=== PATIENT | female | born 1980 | race Two or more races ===

== ENCOUNTER 2016-08-09 01:45 | Emergency (ER) | payer OTHER ==
[~2016-08-09] VITALS: Ht 165.1 cm; Wt 107.5 kg
--- NOTE | 2016-08-09 01:56 | NUR ---
[id number] FR HOME FOR C/O DIFFUSE ABD PAIN W/ N/V X COUPLE HRS, S/P EATING CHICKEN FR RALPHS. PT AOX4 RR EVEN AND UNLABORED. NO SOB NOTED. NAD NOTED. NO NVD AT THIS TIME. PT GOWNED AND PLACED ON MONITOR WAITING FOR MD MERRITT.
[2016-08-09] MEDS ORDERED: IV NS 0.9% 1,000 ML ONE (02:15)
[2016-08-09] MEDS ORDERED: MORPHINE SULFATE INJ 4 MG/ML DISP.SYRIN ONE (02:15)
[2016-08-09] MEDS ORDERED: ONDANSETRON HCL/PF 4 MG/2 ML VIAL ONE ×2 (02:15→02:34)
[2016-08-09] MEDS ORDERED: IV SET PRIMARY 1 EA INFUS.SET MC ONE (02:15)
[2016-08-09] MEDS: MORPHINE SULFATE INJ 2 MG/ML DISP.SYRIN IV ONE (02:24)
[2016-08-09] MEDS: IV NS 0.9% 1,000 ML BAG IV ONE (02:24)
[2016-08-09] MEDS: ONDANSETRON HCL/PF 4 MG/2 ML VIAL IVP ONE (02:24)
[2016-08-09 02:25] LABS: BASOPHILS # (AUTO) 0.2 /CMM (0.0-0.2); BASOPHILS % (AUTO) 1.2 % (0.0-2.0); EOSINOPHILS # (AUTO) 0.2 /CMM (0.0-0.7); EOSINOPHILS % (AUTO) 1.4 % (0.0-6.0); HEMATOCRIT 45 % (33-45); HEMOGLOBIN 15.1 g/dL (11.5-14.8); LYMPHOCYTES # (AUTO) 2.5 /CMM (0.8-4.8); LYMPHOCYTES % (AUTO) 16.4 % (20.0-44.0); MEAN CORPUSCULAR HEMOGLOBIN 29 PG (26.0-33.0); MEAN CORPUSCULAR HGB CONC 34 g/dl (31.0-36.0); MEAN CORPUSCULAR VOLUME 85 fL (82-100); MONOCYTES # (AUTO) 0.6 /CMM (0.1-1.30); NEUTROPHILS # (AUTO) 11.5 /CMM (1.8-8.9); PLATELET COUNT (AUTO) 292 /CMM (150-450); RDW COEFFICIENT OF VARIATION 13.6 (11.5-15.0); RED BLOOD CELL COUNT(AUTO) 5.25 MIL/uL (4.0-5.2)
[2016-08-09 02:35] LABS: CALCIUM, SERUM 9.7 mg/dL (8.5-10.1); POTASSIUM 3.7 mmol/L (3.5-5.1)
[2016-08-09 02:41] LABS: ALBUMIN 4.4 g/dL (3.4-5.0); BILIRUBIN,DIRECT 0.2 mg/dL (0.0-0.2); BILIRUBIN,TOTAL 0.7 mg/dL (0.2-1.0); TOTAL PROTEIN, SERUM 8.2 g/dL (6.4-8.2)
[2016-08-09] MEDS: ONDANSETRON HCL/PF 4 MG/2 ML VIAL IV ONE (02:42)
[2016-08-09] MEDS ORDERED: LORAZEPAM INJ 2 MG/ML VIAL ONE (03:17)
--- NOTE | 2016-08-09 03:26 | NUR ---
DR. MONTES AT BEDSIDE SPEAKING TO PT
--- NOTE | 2016-08-09 03:27 | NUR ---
GREGORY (yingienphilip) [phone]
[2016-08-09] MEDS: LORAZEPAM INJ 2 MG/ML VIAL IV ONE (03:40)
--- NOTE | 2016-08-09 03:41 | NUR ---
URINE COLLECTED. CALLED LAB FOR CIVIL CAD DESIGNER.
[2016-08-09 03:52] LABS: APPEARANCE,URINE CLEAR (CLEAR); BILIRUBIN,URINE NEGATIVE (NEGATIVE); BLOOD, URINE NEGATIVE Ery/uL (NEGATIVE); COLOR,URINE YELLOW (YELLOW); KETONES,URINE 3+ (NEGATIVE); LEUKOCYTE ESTERASE ,URINE NEGATIVE (NEGATIVE); NITRITE, URINE NEGATIVE (NEGATIVE); PH,URINE 7.5 (5.0-8.0); PROTEIN,URINE TRACE mg/dl (NEGATIVE); UGLUCOSE NEGATIVE (NEGATIVE); UROBILINOGEN,URINE 0.2 EU/dL (0.2)
[2016-08-09 03:53] LABS: PREGNANCY TEST URINE QUAL NEGATIVE (NEGATIVE)
[2016-08-09 04:11] LABS: BACTERIA,URINE None seen /HPF (None Seen); RBC,URINE NONE SEEN /HPF (0-2); SQUAMOUS EPITHELIAL CELL,UR Few /HPF (None Seen); WBC,URINE 0-2 /HPF (0-3)
--- NOTE | 2016-08-09 04:30 | NUR ---
CALLED [facility] FOR F/U PENDING RESULTS FOR CT ABD/PELVIS.
--- NOTE | 2016-08-09 05:03 | NUR ---
CALLED [facility], RESULTS FOR CT ABD/PELVIS TO BE FAXED
--- NOTE | 2016-08-09 05:05 | NUR ---
FAX OF CT ABD/PELVIS RECEIVED.
--- NOTE | 2016-08-09 05:15 | NUR ---
DR. MONTES AT BEDSIDE SPEAKING TO PT REGARDING RESULTS.
--- NOTE | 2016-08-09 05:24 | NUR ---
IV removed. Catheter intact and site benign. Pressure and 4x4 applied to site. No bleeding noted. Patient discharged to home in stable condition. Written and verbal after care instructions given. Patient verbalizes understanding of instruction. ambulatory with a steady gait
[2016-08-09 05:25] VITALS: BP 126/86
== END 2016-08-09 05:25 | disposition home or self-care (01) ==
LOC: ER 01:50
DX: N83.201 Unspecified ovarian cyst, right side (principal); F31.9 Bipolar disorder, unspecified
CPT/HCPCS: 36415; 74176; 80048; 80076; 81001; 84703; 85025; 96361; 96374; 96375; 99285; A4606; J2060; J2270; J2405 ×2; J7030; Z7610; 81000-TC

== ENCOUNTER 2016-09-03 03:35 | Emergency (ER) | payer OTHER ==
[~2016-09-03] VITALS: Ht 165.1 cm; Wt 108.9 kg
--- NOTE | 2016-09-03 05:59 | NUR ---
PT AMBULATORY TO ER BED 2, BIBSELF, C/O RUQ ABD PAIN SINCE 1AM. +NAUSEA. PT AOX4 RR EVEN AND UNLABORED. NO SOB NOTED. NAD NOTED. NO NVD AT THIS TIME. PT NOT DIAPHORETIC. PT GOWNED AND PLACED ON MONITOR WAITING FOR MD MERRITT.
--- NOTE | 2016-09-03 06:06 | NUR ---
DR. LI AT BEDSIDE FOR EVAL.
--- NOTE | 2016-09-03 06:06 | NUR ---
REPORT GIVEN TO SABRA LEO FOR NOEMY.
--- NOTE | 2016-09-03 06:08 | NUR ---
RECEIVED REPORT FROM GISSELL MONTAÑO
[2016-09-03 06:17] LABS: APPEARANCE,URINE CLEAR (CLEAR); BILIRUBIN,URINE NEGATIVE (NEGATIVE); BLOOD, URINE 2+ Ery/uL (NEGATIVE); COLOR,URINE YELLOW (YELLOW); KETONES,URINE TRACE (NEGATIVE); LEUKOCYTE ESTERASE ,URINE NEGATIVE (NEGATIVE); NITRITE, URINE NEGATIVE (NEGATIVE); PH,URINE 5.5 (5.0-8.0); PROTEIN,URINE NEGATIVE (NEGATIVE); UGLUCOSE NEGATIVE (NEGATIVE); UROBILINOGEN,URINE 0.2 EU/dL (0.2)
[2016-09-03 06:21] LABS: BACTERIA,URINE Few /HPF (None Seen); WBC,URINE 0-2 /HPF (0-3)
[2016-09-03 06:22] LABS: PREGNANCY TEST URINE QUAL NEGATIVE (NEGATIVE)
[2016-09-03] MEDS ORDERED: KETOROLAC TROMETHAMINE INJ 30 MG/ML VIAL ONE (06:22)
[2016-09-03] MEDS ORDERED: IV SET PRIMARY 1 EA INFUS.SET MC ONE (06:23)
[2016-09-03] MEDS ORDERED: IV NS 0.9% 1,000 ML ONE (06:23)
[2016-09-03] MEDS ORDERED: ONDANSETRON HCL/PF 4 MG/2 ML VIAL ONE (06:23)
--- NOTE | 2016-09-03 06:24 | NUR ---
LUANN #20 G IV ACCESS. BLOOD SAMPLE COLLECTED SENT TO LAB
[2016-09-03] MEDS ORDERED: IV NS 0.9% 1,000 ML BAG IV ONE (06:30)
[2016-09-03] MEDS ORDERED: KETOROLAC TROMETHAMINE INJ 30 MG/ML VIAL IV ONE (06:30)
[2016-09-03] MEDS ORDERED: ONDANSETRON HCL/PF 4 MG/2 ML VIAL IVP ONE (06:30)
[2016-09-03 06:32] LABS: BASOPHILS # (AUTO) 0.1 /CMM (0.0-0.2); BASOPHILS % (AUTO) 0.7 % (0.0-2.0); EOSINOPHILS # (AUTO) 0.1 /CMM (0.0-0.7); EOSINOPHILS % (AUTO) 0.6 % (0.0-6.0); HEMATOCRIT 44 % (33-45); HEMOGLOBIN 14.6 g/dL (11.5-14.8); LYMPHOCYTES # (AUTO) 1.5 /CMM (0.8-4.8); MEAN CORPUSCULAR HEMOGLOBIN 29 PG (26.0-33.0); MEAN CORPUSCULAR HGB CONC 34 g/dl (31.0-36.0); MEAN CORPUSCULAR VOLUME 86 fL (82-100); MONOCYTES # (AUTO) 0.5 /CMM (0.1-1.30); MONOCYTES % (AUTO) 3.8 % (2.0-12.0); NEUTROPHILS # (AUTO) 11.7 /CMM (1.8-8.9); NEUTROPHILS % (AUTO) 83.9 % (43.0-81.0); PLATELET COUNT (AUTO) 307 /CMM (150-450); RDW COEFFICIENT OF VARIATION 14.3 (11.5-15.0); RED BLOOD CELL COUNT(AUTO) 5.07 MIL/uL (4.0-5.2); WHITE BLOOD COUNT (AUTO) 13.9 K/uL (4.3-11.0)
[2016-09-03 06:41] LABS: CALCIUM, SERUM 8.8 mg/dL (8.5-10.1); CREATININE 0.7 mg/dL (0.6-1.3); POTASSIUM 4.3 mmol/L (3.5-5.1)
[2016-09-03 06:47] LABS: ALBUMIN 3.7 g/dL (3.4-5.0); BILIRUBIN,DIRECT 0.1 mg/dL (0.0-0.2); BILIRUBIN,TOTAL 0.5 mg/dL (0.2-1.0); TOTAL PROTEIN, SERUM 7.6 g/dL (6.4-8.2)
--- NOTE | 2016-09-03 08:53 | NUR ---
Patient discharged to home in stable condition. Written and verbal after care instructions given. Patient verbalizes understanding of instruction.
--- NOTE | 2016-09-03 08:53 | NUR ---
IV removed. Catheter intact and site benign. Pressure and 4x4 applied to site. No bleeding noted.
[2016-09-03 08:54] VITALS: BP 123/80
== END 2016-09-03 08:55 | disposition home or self-care (01) ==
LOC: ER 03:35
DX: K80.70 Calculus of gallbladder and bile duct without cholecystitis without obstruction (principal)
CPT/HCPCS: 36415; 76700; 80048; 80076; 81001; 83690; 84703; 85025; 96361; 96374; 96375; 99285; A4606; J1885; J2405; J7030; Z7610; 81000-TC

== ENCOUNTER 2016-12-11 10:21 | Emergency (ER) | payer OTHER ==
[~2016-12-11] VITALS: Ht 165.1 cm; Wt 111.1 kg
[2016-12-11 10:21] VITALS: BP 118/62
== END 2016-12-11 12:32 | disposition home or self-care (01) ==
LOC: ER 10:22
DX: S31.109D Unspecified open wound of abdominal wall, unspecified quadrant without penetration into peritoneal cavity, subsequent encounter (principal)
CPT/HCPCS: 99282; A4606; Z7610

== ENCOUNTER 2019-01-23 11:14 | Emergency (ER) | payer OTHER ==
[~2019-01-23] VITALS: Ht 165.1 cm; Wt 110.2 kg
[2019-01-23 11:26] VITALS: BP 121/89
[2019-01-23 11:36] LABS: BASOPHILS # (AUTO) 0.1 /CMM (0.0-0.2); BASOPHILS % (AUTO) 0.7 % (0.0-2.0); EOSINOPHILS % (AUTO) 1.8 % (0.0-6.0); HEMATOCRIT 44 % (33-45); HEMOGLOBIN 14.3 g/dL (11.5-14.8); LYMPHOCYTES # (AUTO) 2.2 /CMM (0.8-4.8); LYMPHOCYTES % (AUTO) 15.4 % (20.0-44.0); MEAN CORPUSCULAR HGB CONC 33 g/dl (31.0-36.0); MEAN CORPUSCULAR VOLUME 90 fL (82-100); MONOCYTES # (AUTO) 0.9 /CMM (0.1-1.30); MONOCYTES % (AUTO) 6.5 % (2.0-12.0); NEUTROPHILS # (AUTO) 10.9 /CMM (1.8-8.9); NEUTROPHILS % (AUTO) 75.6 % (43.0-81.0); PLATELET COUNT (AUTO) 402 /CMM (150-450); RED BLOOD CELL COUNT(AUTO) 4.85 MIL/uL (4.0-5.2); WHITE BLOOD COUNT (AUTO) 14.4 K/uL (4.3-11.0)
[2019-01-23 11:37] LABS: APPEARANCE,URINE Slightly Cloudy (CLEAR); BILIRUBIN,URINE MODERATE (NEGATIVE); BLOOD, URINE Moderate Ery/uL (NEGATIVE); COLOR,URINE Dark (YELLOW); KETONES,URINE Negative (NEGATIVE); LEUKOCYTE ESTERASE ,URINE Negative (NEGATIVE); NITRITE, URINE Negative (NEGATIVE); PH,URINE 5.5 (5.0-8.0); PROTEIN,URINE 30 mg/dl (NEGATIVE); UGLUCOSE Negative (NEGATIVE); UROBILINOGEN,URINE 0.2 EU/dL (0.2)
[2019-01-23 11:43] LABS: CALCIUM, SERUM 9.4 mg/dL (8.5-10.1); CARBON DIOXIDE 25 mmol/L (21-32); CHLORIDE 100 mmol/L (98-107); CREATININE 1.1 mg/dL (0.6-1.3); GLUCOSE 102 mg/dL (74-106); POTASSIUM 3.3 mmol/L (3.5-5.1); SODIUM SERUM 137 mmol/L (136-145); UREA NITROGEN, BLOOD 15 mg/dL (7-18)
[2019-01-23 11:49] LABS: ALANINE AMINOTRANSFERASE 36 U/L (12-78); ALBUMIN 4.2 g/dL (3.4-5.0); ALCOHOL, BLOOD < 3 mg/dL (0-0); ALKALINE PHOSPHATASE 77 U/L (46-116); ASPARTATE AMINOTRANSFERASE 22 U/L (15-37); BILIRUBIN,DIRECT 0.1 mg/dL (0.0-0.2); BILIRUBIN,TOTAL 0.8 mg/dL (0.2-1.0); SALICYLATE 3.3 mg/dL (2.8-20.0); TOTAL PROTEIN, SERUM 8.2 g/dL (6.4-8.2)
[2019-01-23 11:50] LABS: ACETAMINOPHEN < 2 ug/ml (10-30)
[2019-01-23 11:52] LABS: BACTERIA,URINE Rare /HPF (None Seen); SQUAMOUS EPITHELIAL CELL,UR Few /HPF (None Seen); WBC,URINE 0-2 /HPF (0-3)
--- NOTE | 2019-01-23 19:15 | NUR ---
KEYANA CORBIN [phone]
--- NOTE | 2019-01-23 19:16 | NUR ---
DR LI AT BEDSIDE
[2019-01-23] MEDS ORDERED: OXYMETAZOLINE HCL NASAL SPRAY 30 ML BOTTLE NS ONE (23:38)
--- NOTE | 2019-01-23 23:45 | NUR ---
PT CAMEBY NURSING STATION C/O NASAL CONGESTION. NOTED PT CONGESTED NASALLY, MD MADE AWARE. ORDER RECEIVED TO GIVE AFRIN NASAL SPRAY. ORDER NOTED AND CARRIED OUT
[2019-01-24] MEDS ORDERED: OXYMETAZOLINE HCL NASAL SPRAY 30 ML BOTTLE NS ONE
--- NOTE | 2019-01-24 01:27 | NUR ---
PER JESUSITA ALEXANDER INTAKE ACCEPTED AT [facility]. [phone] EXT [phone] FOR REPORT ACCEPTING MD: DR. LEONG
--- NOTE | 2019-01-24 02:21 | NUR ---
TIERA CALL THE CAR CALLED FOR S TRANSPORT. # [phone]
--- NOTE | 2019-01-24 03:03 | NUR ---
ABRAHAN GALINDO 1HR.
--- NOTE | 2019-01-24 03:37 | NUR ---
REPORT GIVEN TO SYLVIE MONTAÑO FOR CONTINUATION OF CARE.
--- NOTE | 2019-01-24 03:43 | NUR ---
ROMARIO AT BEDSIDE FOR TRANSPORT TO [facility].
== END 2019-01-24 03:47 ==
LOC: ER 11:16
DX: F32.9 Major depressive disorder, single episode, unspecified (principal); T14.91XA Suicide attempt, initial encounter; T45.0X2A Poisoning by antiallergic and antiemetic drugs, intentional self-harm, initial encounter; F12.10 Cannabis abuse, uncomplicated; J45.909 Unspecified asthma, uncomplicated; Y93.89 Activity, other specified; Y99.9 Unspecified external cause status
CPT/HCPCS: 36415; 80048; 80076; 80305; 80307; 80329; 81001; 85025; 99285; G0480; 81000-TC